=== PATIENT | female | born 1945 | race Caucasian/White ===

== ENCOUNTER → 2021-12-10 08:45 | Outpatient (BNVA) | payer MEDICARE, OTHER, SELFPAY | PROVIDERS: PCP Nurse Practitioner Family; Visit Provider Psychiatry & Neurology Psychiatry | DX: F31.31 Bipolar disorder, current episode depressed, mild (principal); I12.9 Hypertensive chronic kidney disease with stage 1 through stage 4 chronic kidney disease, or unspecified chronic kidney disease; N18.30 Chronic kidney disease, stage 3 unspecified | CPT/HCPCS: 90833; 99212 ==

== ENCOUNTER → 2022-02-10 11:31 | Outpatient (BNVA) | payer MEDICARE, OTHER, SELFPAY | PROVIDERS: PCP Nurse Practitioner Family; Visit Provider Psychiatry & Neurology Psychiatry | DX: F31.31 Bipolar disorder, current episode depressed, mild (principal); I12.9 Hypertensive chronic kidney disease with stage 1 through stage 4 chronic kidney disease, or unspecified chronic kidney disease; N18.30 Chronic kidney disease, stage 3 unspecified; Z79.899 Other long term (current) drug therapy | CPT/HCPCS: 90833; 99212 ==

== ENCOUNTER → 2022-05-29 10:59 | Outpatient (BNVA) | payer MEDICARE, OTHER, SELFPAY | PROVIDERS: PCP Nurse Practitioner Family; Visit Provider Psychiatry & Neurology Psychiatry | DX: F31.31 Bipolar disorder, current episode depressed, mild (principal); I12.9 Hypertensive chronic kidney disease with stage 1 through stage 4 chronic kidney disease, or unspecified chronic kidney disease; N18.30 Chronic kidney disease, stage 3 unspecified | CPT/HCPCS: 90833; 99212 ==

== ENCOUNTER → 2022-07-29 10:53 | Outpatient (BNVA) | payer MEDICARE, OTHER, SELFPAY | PROVIDERS: PCP Nurse Practitioner Family; Visit Provider Psychiatry & Neurology Psychiatry | DX: F31.31 Bipolar disorder, current episode depressed, mild (principal); N18.30 Chronic kidney disease, stage 3 unspecified; I10 Essential (primary) hypertension | CPT/HCPCS: 90833; 99212 ==

== ENCOUNTER 2022-10-20 12:46 | Outpatient (AMB) | payer MEDICARE, OTHER, SELFPAY ==
--- NOTE | 2022-12-10 15:13 | A.OFFPSYCH_ITS ---
Intake Intake Visit Reasons: Depression Allergies No Known Allergies [No Known Allergies*] Allergy (Unverified 11/24/19 19:15) Medication List - Last Reconciled 12/10/22 by Kevin Muniz MD amlodipine 10 mg PO DAILY carbamazepine 200 mg (2 x 100 mg) PO BID 90 days furosemide 20 mg PO DAILY gabapentin 100 mg PO TID levothyroxine (Synthroid) 50 mcg PO DAILY lorazepam 1 mg PO BEDTIME losartan 50 mg PO DAILY lurasidone (Latuda) 40 mg PO DAILY 30 days prazosin mg PO sumatriptan succinate mg PO HPI- Psychiatric Chief Complaint: Depression HPI Narrative: Patient seen in psychiatric follow-up. Patient dealing with and illness in her family which can be overwhelming she is quite close with her brothers. Does feel somewhat overly his mother at times by her daughter. Mood generally stable some periods of mild dysphoria appropriate to what is happening. Patient is in latter stages of renal disease she is potentially facing the need for dialysis at some point she continues to swim and generally be active She does use marijuana at times for sleep denies paranoia lethargy or other reaction to this we have discussed that there is no evidence base material to guide this Past Psychiatric History: Past history of hospitalizations serious manic episodes in the past Mental Status Exam Mental Status Exam Patient Appearance: Appropriate Level of Consciousness: Awake, Appropriate and Restless Patient Behavior: Appropriate and Cooperative Mood Description: Appropriate, Constricted, Anxious and Apprehensive Affect Description: Appropriate, Constricted and Depressed (In relationship to illness) Patient Cognition Impaired: No Ability to Follow Directions: Good Speech Pattern: Clear and Appropriate Memory Description: Intact Hallucinations: None Delusions: Not Present Thought Process: Intact Thought Content: positive for Intact, negative for Flight of Ideas, positive for Slowed Thinking, negative for Suicidal Ideation or negative for Homicidal Ideation Depressive Symptoms: Increased Anxiety and Increased Fatigue Judgement: Good Judgement and Insight: aims no oral facial dyskinesia patient does seem more preoccupied about her kidney related it issues and what it may mean Assessment and Plan Assessment & Plan (1) CKD (chronic kidney disease) stage 3, GFR 30-59 ml/min: Status: Acute Code(s): N18.30 - Chronic kidney disease, stage 3 unspecified (2) Bipolar 1 disorder, depressed, mild: Status: Acute Code(s): F31.31 - Bipolar disorder, current episode depressed, mild (3) Essential (primary) hypertension: Status: Acute Code(s): I10 - Essential (primary) hypertension Plan Check Tegretol level comprehensive metabolic panel hemoglobin A1c patient on Latuda no noted confusion lethargy consider decrease Tegretol has not had a manic episode or psychotic episode extended period of time no evidence of tardive dyskinesia Orders: Orders Comprehensive [place]. Panel Fast 10/20/22 N18.30 - Chronic kidney disease, stage 3 unspecified, F31.31 - Bipolar disorder, current episode depressed, mild, I10 - Essential (primary) hypertension Hemoglobin A1c 10/20/22 N18.30 - Chronic kidney disease, stage 3 unspecified, F31.31 - Bipolar disorder, current episode depressed, mild, I10 - Essential (primary) hypertension Carbamazepine Tegretol 10/20/22 N18.30 - Chronic kidney disease, stage 3 unspecified, F31.31 - Bipolar disorder, current episode depressed, mild, I10 - Essential (primary) hypertension Counseling and coordination of Care Details-Self Mgmt counseling: Issues related to chronic psychiatric illness issues related to illness in the family and life cycle issues and had a maintain Mood equanimity also in the face of chronic pain Medication management counseling: Effectiveness and Side effects Diagnosis and Prognosis Counseling: Adequacy of current interventions Details: I spent [38] minutes reviewing the record, seeing the patient and documenting in the medical record. Counseling provided to the patient/caregiver as outlined below. Addressed patient/caregiver concerns regarding current medication regime including effective adherence. Addressed patient/caregiver concerns regarding diagnosis and prognosis including accuracy of diagnosis, prognosis over time, impact of diagnosis. Addressed patient/caregiver concerns regarding impact of recent stressors. 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
== END 2022-10-20 13:28 | disposition home or self-care (01) ==
LOC: HO.HOP 12:46
PROVIDERS: PCP Nurse Practitioner Family; Visit Provider Psychiatry & Neurology Psychiatry
DX: N18.30 Chronic kidney disease, stage 3 unspecified (principal); F31.31 Bipolar disorder, current episode depressed, mild; I10 Essential (primary) hypertension
CPT/HCPCS: 90833; 99213

== ENCOUNTER → 2022-10-20 12:46 | Outpatient (BNVA) | payer MEDICARE, OTHER, SELFPAY | PROVIDERS: PCP Nurse Practitioner Family; Visit Provider Psychiatry & Neurology Psychiatry | DX: F31.31 Bipolar disorder, current episode depressed, mild (principal); I12.9 Hypertensive chronic kidney disease with stage 1 through stage 4 chronic kidney disease, or unspecified chronic kidney disease; N18.30 Chronic kidney disease, stage 3 unspecified | CPT/HCPCS: 90833; 99212 ==

== ENCOUNTER 2022-12-04 11:56 | Outpatient (AMB) | payer MEDICARE, OTHER, SELFPAY ==
--- NOTE | 2022-12-12 13:44 | MHC.OFFVISPS ---
Intake Intake Visit Reasons: depression Allergies No Known Allergies [No Known Allergies*] Allergy (Unverified 11/24/19 19:15) HPI- Psychiatric Chief Complaint: depression HPI Narrative: The patient is seen in psychiatric follow-up. The patient has been somewhat appropriately depressed and grieving after that of her brother from cancer the patient has no manic symptoms. Not depressed an ongoing way can get somewhat discouraged regarding her physical health at times. She does have chronic kidney disease and may eventually be a candidate for dialysis and this does way on her. She has had a number of losses over the past couple of years. Her PHQ-9 is 5 there is some increased irritability the patient continues on Latuda and Tegretol no ana noted S the patient is dealing with chronic pain question some form of spinal nerve involvement but has not had MRI or workup for this. She has had physical therapy. Past Psychiatric History: Past history of hospitalizations serious manic episodes in the past Mental Status Exam Mental Status Exam Patient Appearance: Appropriate Level of Consciousness: Awake, Appropriate and Restless Patient Behavior: Appropriate and Cooperative Mood Description: Appropriate, Constricted, Anxious and Apprehensive Affect Description: Appropriate and Constricted Patient Cognition Impaired: No Ability to Follow Directions: Good Speech Pattern: Clear and Appropriate Memory Description: Intact Hallucinations: None Delusions: Not Present Thought Process: Intact Thought Content: positive for Intact, negative for Flight of Ideas, positive for Slowed Thinking, negative for Suicidal Ideation or negative for Homicidal Ideation Depressive Symptoms: Increased Anxiety and Increased Fatigue Judgement: Good Judgement and Insight: aims no oral facial dyskinesia patient does seem more preoccupied about her kidney related it issues and what it may mean ongoing Assessment and Plan Assessment & Plan (1) CKD (chronic kidney disease) stage 3, GFR 30-59 ml/min: Status: Acute Code(s): N18.30 - Chronic kidney disease, stage 3 unspecified (2) Bipolar 1 disorder, depressed, mild: Status: Acute Code(s): F31.31 - Bipolar disorder, current episode depressed, mild Plan Continue Latuda and Tegretol check recent labs will trying get last nephrology noted. The patient will be seeing her PCP P would clearly be benefit from or medical workup is having appears to be intermittent radiculopathy I also discussed possible referral to pain management patient will be working through her primary care Counseling and coordination of Care Pt. Self Management counseling: Greif counseling Details-Self Mgmt counseling: Patient continues to swim and stays physically gauge. Is support regarding multiple recent losses and appropriate grieving Diagnosis and Prognosis Counseling: Impact of diagnosis on life functions and Adequacy of current interventions Details: I spent [38] minutes reviewing the record, seeing the patient and documenting in the medical record. Counseling provided to the patient/caregiver as outlined below. Addressed patient/caregiver concerns regarding current medication regime including effective adherence. Addressed patient/caregiver concerns regarding diagnosis and prognosis including accuracy of diagnosis, prognosis over time, impact of diagnosis. Addressed patient/caregiver concerns regarding impact of recent stressors. 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
== END 2022-12-04 13:53 | disposition home or self-care (01) ==
LOC: HO.HOP 11:56
PROVIDERS: PCP Nurse Practitioner Family; Visit Provider Psychiatry & Neurology Psychiatry
DX: F31.31 Bipolar disorder, current episode depressed, mild (principal); N18.30 Chronic kidney disease, stage 3 unspecified
CPT/HCPCS: 90833; 99213

== ENCOUNTER → 2022-12-04 11:56 | Outpatient (BNVA) | payer MEDICARE, OTHER, SELFPAY | PROVIDERS: PCP Nurse Practitioner Family; Visit Provider Psychiatry & Neurology Psychiatry | DX: F31.81 Bipolar II disorder (principal); N18.30 Chronic kidney disease, stage 3 unspecified; Z79.899 Other long term (current) drug therapy | CPT/HCPCS: 90833; 99212 ==

== ENCOUNTER 2023-01-13 11:09 | Outpatient (AMB) | payer MEDICARE, OTHER, SELFPAY ==
--- NOTE | 2023-01-13 11:24 | A.OFFPSYCH_ITS ---
Intake Intake Visit Reasons: depression Allergies No Known Allergies [No Known Allergies*] Allergy (Unverified 11/24/19 19:15) HPI- Psychiatric Chief Complaint: depression HPI Narrative: Pt is 77 yo female hx of bipolar dx feels stable went to [facility] [place] recently [place] father was commander of [employer] no change in medical status has cont to swim intermittantly does have radicular pain has pcp appt 01/20/23 daughter needing hip replacement Past Psychiatric History: Past history of hospitalizations serious manic episodes in the past Mental Status Exam Mental Status Exam Patient Appearance: Appropriate Level of Consciousness: Awake and Appropriate Patient Behavior: Appropriate and Cooperative Mood Description: Appropriate and Constricted Affect Description: Appropriate and Constricted Patient Cognition Impaired: No Ability to Follow Directions: Good Speech Pattern: Clear and Appropriate Memory Description: Intact Hallucinations: None Delusions: Not Present Thought Process: Intact Thought Content: positive for Intact, negative for Flight of Ideas, positive for Slowed Thinking, negative for Suicidal Ideation or negative for Homicidal Ideation Depressive Symptoms: Increased Anxiety and Increased Fatigue Judgement: Good Judgement and Insight: aims no oral facial dyskinesia some frustration with medical providers at times thinks about loss of brothers Assessment and Plan Assessment & Plan (1) CKD (chronic kidney disease) stage 3, GFR 30-59 ml/min: Status: Acute Code(s): N18.30 - Chronic kidney disease, stage 3 unspecified (2) Bipolar 1 disorder, depressed, mild: Status: Acute Code(s): F31.31 - Bipolar disorder, current episode depressed, mild (3) Essential (primary) hypertension: Status: Acute Code(s): I10 - Essential (primary) hypertension Plan pt generally stable some c/o pain needs spinal w/u still has active sibs teg 200 bid latuda 40 mg see labs Counseling and coordination of Care Pt. Self Management counseling: Behavior activation Medication management counseling: Effectiveness and Side effects Diagnosis and Prognosis Counseling: Adequacy of current interventions Details-Diagnosis/Prognosis counseling: full range of emotion cont social activities Details: I spent [38] minutes reviewing the record, seeing the patient and documenting in the medical record. Counseling provided to the patient/caregiver as outlined below. Addressed patient/caregiver concerns regarding current medication regime including effective adherence. Addressed patient/caregiver concerns regarding diagnosis and prognosis including accuracy of diagnosis, prognosis over time, impact of diagnosis. Addressed patient/caregiver concerns regarding impact of recent stressors. 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
== END 2023-01-13 12:02 | disposition home or self-care (01) ==
LOC: HO.HOP 11:09
PROVIDERS: Visit Provider Psychiatry & Neurology Psychiatry
DX: F31.31 Bipolar disorder, current episode depressed, mild (principal); N18.30 Chronic kidney disease, stage 3 unspecified; I10 Essential (primary) hypertension
CPT/HCPCS: 90833; 99213

== ENCOUNTER → 2023-01-13 11:09 | Outpatient (BNVA) | payer MEDICARE, OTHER, SELFPAY | PROVIDERS: Visit Provider Psychiatry & Neurology Psychiatry | DX: I12.9 Hypertensive chronic kidney disease with stage 1 through stage 4 chronic kidney disease, or unspecified chronic kidney disease (principal); N18.30 Chronic kidney disease, stage 3 unspecified; F31.31 Bipolar disorder, current episode depressed, mild | CPT/HCPCS: 90833; 99212 ==

== ENCOUNTER 2023-02-24 11:34 | Outpatient (AMB) | payer MEDICARE, OTHER, SELFPAY ==
--- NOTE | 2023-02-24 11:28 | A.OFFPSYCH_ITS ---
Intake Intake Visit Reasons: Depression Allergies No Known Allergies [No Known Allergies*] Allergy (Unverified 11/24/19 19:15) HPI- Psychiatric Chief Complaint: Depression HPI Narrative: Patient dealing with deaths of multiple fam members some grief. No manic symptoms some periods of dysphoria but generally doing okay. No significant change in renal status. Patient continues on Latuda and Tegretol. No complaints of side effects smokes a small amount of marijuana reportedly at bedtime that reportedly has been helpful no significant instability or problems Past Psychiatric History: Past history of hospitalizations serious manic episodes in the past Mental Status Exam Mental Status Exam Patient Appearance: Appropriate Level of Consciousness: Awake and Appropriate Patient Behavior: Appropriate and Cooperative Mood Description: Appropriate and Constricted Affect Description: Appropriate and Constricted Patient Cognition Impaired: No Ability to Follow Directions: Good Speech Pattern: Clear and Appropriate Memory Description: Intact Hallucinations: None Delusions: Not Present Thought Process: Intact Thought Content: positive for Intact, negative for Flight of Ideas, positive for Slowed Thinking, negative for Suicidal Ideation or negative for Homicidal Ideation Depressive Symptoms: Increased Anxiety and Increased Fatigue Judgement: Good Judgement and Insight: aims no oral facial dyskinesia some frustration with medical providers at times thinks about loss of brothers Assessment and Plan Assessment & Plan (1) Bipolar 1 disorder, depressed, mild: Status: Acute Code(s): F31.31 - Bipolar disorder, current episode depressed, mild (2) CKD (chronic kidney disease) stage 3, GFR 30-59 ml/min: Status: Acute Code(s): N18.30 - Chronic kidney disease, stage 3 unspecified Plan Because of lethargy and fatigue will trying decrease carbamazepine to 300 mg if any evidence of cycling increase immediately Continue Latuda Medications: Changed From carbamazepine 200 mg (2 x 100 mg) PO BID 90 days 360 tabs 1RF To carbamazepine 1 tab in the am 2 tabs bedtime 100 - 200 mg (1 - 2 x 100 mg) PO DIRECTED 180 tabs 1RF 90 days Counseling and coordination of Care Details-Self Mgmt counseling: Discussed issues related to recent family issues insert financial issue Details-Med Mgmt counseling: Patient with decreased renal function somewhat lethargic decrease Tegretol to 300 mg daily Diagnosis and Prognosis Counseling: Accuracy of diagnosis and Adequacy of current interventions Details: I spent [37] minutes reviewing the record, seeing the patient and documenting in the medical record. Counseling provided to the patient/caregiver as outlined below. Addressed p atient/caregiver concerns regarding current medication regime including effective adherence. Addressed patient/caregiver concerns regarding diagnosis and prognosis including accuracy of diagnosis, prognosis over time, impact of diagnosis. Addressed patient/caregiver concerns regarding impact of recent stressors. 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
== END 2023-02-24 11:46 | disposition home or self-care (01) ==
LOC: HO.HOP 11:34
PROVIDERS: Visit Provider Psychiatry & Neurology Psychiatry
DX: F31.31 Bipolar disorder, current episode depressed, mild (principal); N18.30 Chronic kidney disease, stage 3 unspecified
CPT/HCPCS: 90833; 99213

== ENCOUNTER → 2023-02-24 11:34 | Outpatient (BNVA) | payer MEDICARE, OTHER, SELFPAY | PROVIDERS: Visit Provider Psychiatry & Neurology Psychiatry | DX: F31.31 Bipolar disorder, current episode depressed, mild (principal); N18.30 Chronic kidney disease, stage 3 unspecified | CPT/HCPCS: 90833; 99212 ==

== ENCOUNTER 2023-04-03 16:05 | Outpatient (AMB) | payer MEDICARE, OTHER, SELFPAY ==
--- NOTE | 2023-04-03 11:18 | A.OFFPSYCH_ITS ---
Intake Intake Visit Reasons: Depression Allergies No Known Allergies [No Known Allergies*] Allergy (Unverified 11/24/19 19:15) HPI- Psychiatric Chief Complaint: Depression HPI Narrative: Patient seen in psychiatric follow-up. The patient has been more anxious and dysphoric to some degree. Her ex will be moving closer to be with their daughter. Patient is also dealing with the loss of her rack pusher who would become close electrical prospecting operator.Has also been concerned regarding back pain. Has been on latuda tegretol Past Psychiatric History: Past history of hospitalizations serious manic episodes in the past Assessment and Plan Assessment & Plan (1) Bipolar 1 disorder, depressed, mild: Status: Acute Code(s): F31.31 - Bipolar disorder, current episode depressed, mild (2) CKD (chronic kidney disease) stage 3, GFR 30-59 ml/min: Status: Acute Code(s): N18.30 - Chronic kidney disease, stage 3 unspecified Plan pt has had more racing thoughts anxiety has had a number of changes seems more labile on decresed tegretol 300 mg will inc back to 200 bid ck level consider inc 500 mg consider inc latuda ck albs Orders: Orders TSH reflex Free T4 04/03/23 N18.30 - Chronic kidney disease, stage 3 unspecified, F31.31 - Bipolar disorder, current episode depressed, mild Complete Blood Count Auto Diff 04/03/23 N18.30 - Chronic kidney disease, stage 3 unspecified, F31.31 - Bipolar disorder, current episode depressed, mild Comprehensive [place]. Panel Fast 04/03/23 N18.30 - Chronic kidney disease, stage 3 unspecified, F31.31 - Bipolar disorder, current episode depressed, mild Carbamazepine Tegretol 04/03/23 N18.30 - Chronic kidney disease, stage 3 unspecified, F31.31 - Bipolar disorder, current episode depressed, mild Counseling and coordination of Care Details-Self Mgmt counseling: pt considering moving sstressed discussed not making any major moves at this time Medication management counseling: Effectiveness and Dosing range Diagnosis and Prognosis Counseling: Problematic behaviors secondary to diagnosis and Adequacy of current interventions Details: I spent [38] minutes reviewing the record, seeing the patient and documenting in the medical record. Counseling provided to the patient/caregiver as outlined below. Addressed patient/caregiver concerns regarding current medication regime including effective adherence. Addressed patient/caregiver concerns regarding diagnosis and prognosis including accuracy of diagnosis, prognosis over time, impact of diagnosis. Addressed patient/caregiver concerns regarding impact of recent stressors. 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
== END 2023-04-03 16:09 | disposition home or self-care (01) ==
LOC: HO.HOP 16:06
PROVIDERS: Visit Provider Psychiatry & Neurology Psychiatry
DX: F31.31 Bipolar disorder, current episode depressed, mild (principal); N18.30 Chronic kidney disease, stage 3 unspecified
CPT/HCPCS: 90833; 99213

== ENCOUNTER → 2023-04-03 16:05 | Outpatient (BNVA) | payer MEDICARE, OTHER, SELFPAY | PROVIDERS: Visit Provider Psychiatry & Neurology Psychiatry | DX: F31.31 Bipolar disorder, current episode depressed, mild (principal); N18.30 Chronic kidney disease, stage 3 unspecified | CPT/HCPCS: 99212 ==

== ENCOUNTER 2023-05-14 12:27 | Outpatient (AMB) | payer MEDICARE, OTHER, SELFPAY ==
--- NOTE | 2023-05-14 12:55 | MHC.OFFVISPS ---
Intake Intake Visit Reasons: Depression Allergies No Known Allergies [No Known Allergies*] Allergy (Unverified 11/24/19 19:15) HPI- Psychiatric Chief Complaint: Depression HPI Narrative: Patient seen psychiatric follow-up has been feeling more stable since Tegretol increased back to 400 mg a day was concern regarding sedation but patient clearly feeling much more stable . There have been a number of changes her daughter seems to be backing off somewhat the patient's ex- has moved into the area her daughter is now sharing time between her mother and biological father. 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 She does have in the back of her mind that at some point she may need dialysis. She is looking to visit her [id number] who has having a very difficult time after patient's brother. Patient also has chronic back pain has finally been referred to pain management. No noted current manic symptoms not overly despairing or depressed according to the patient. She did also recently lose her events solutions consultant who had been quite helpful Past Psychiatric History: Past history of hospitalizations serious manic episodes in the past Mental Status Exam Mental Status Exam Patient Appearance: Appropriate Level of Consciousness: Awake and Appropriate Patient Behavior: Appropriate and Cooperative Mood Description: Appropriate and Constricted Affect Description: Appropriate and Constricted Patient Cognition Impaired: No Ability to Follow Directions: Good Speech Pattern: Clear and Appropriate Memory Description: Intact Hallucinations: None Delusions: Not Present Thought Process: Intact Thought Content: positive for Intact, negative for Flight of Ideas, positive for Slowed Thinking, negative for Suicidal Ideation or negative for Homicidal Ideation Depressive Symptoms: Increased Anxiety and Increased Fatigue Judgement: Good Judgement and Insight: aims no oral facial dyskinesia some frustration with medical providers at times thinks about loss of brothers Assessment and Plan Assessment & Plan (1) Bipolar 1 disorder, depressed, mild: Status: Acute Code(s): F31.31 - Bipolar disorder, current episode depressed, mild (2) CKD (chronic kidney disease) stage 3, GFR 30-59 ml/min: Status: Acute Code(s): N18.30 - Chronic kidney disease, stage 3 unspecified (3) Essential (primary) hypertension: Status: Acute Code(s): I10 - Essential (primary) hypertension Plan Pt generally doing better on tegretol 200 bid Latuda 40 mg has not felt the anxiety and dysphoria that she had been experiencing continue to monitor labs on higher dose Tegretol monitor for confusion . Medications: Changed From carbamazepine 1 tab in the am 2 tabs bedtime 100 - 200 mg (1 - 2 x 100 mg) PO DIRECTED 90 days 180 tabs 1RF To carbamazepine 1 tab in the am 2 tabs bedtime 200 mg (2 x 100 mg) PO BID 360 tabs 1RF 90 days From carbamazepine 1 tab in the am 2 tabs bedtime 200 mg (2 x 100 mg) PO BID 90 days 360 tabs 1RF To carbamazepine 200 mg (2 x 100 mg) PO BID 360 tabs 1RF 90 days Refilled lurasidone (Latuda) 40 mg PO DAILY 30 tabs 3RF 30 days Counseling and coordination of Care Details: I spent [] minutes reviewing the record, seeing the patient and documenting in the medical record. Counseling provided to the patient/caregiver as outlined below. Addressed patient/caregiver concerns regarding current medication regime including effective adherence. Addressed patient/caregiver concerns regarding diagnosis and prognosis including accuracy of diagnosis, prognosis over time, impact of diagnosis. Addressed patient/caregiver concerns regarding impact of recent stressors. 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
== END 2023-05-14 13:06 | disposition home or self-care (01) ==
LOC: HO.HOP 12:27
PROVIDERS: Visit Provider Psychiatry & Neurology Psychiatry
DX: F31.31 Bipolar disorder, current episode depressed, mild (principal); N18.30 Chronic kidney disease, stage 3 unspecified; I10 Essential (primary) hypertension
CPT/HCPCS: 90833; 99213

== ENCOUNTER → 2023-05-14 12:27 | Outpatient (BNVA) | payer MEDICARE, OTHER, SELFPAY | PROVIDERS: Visit Provider Psychiatry & Neurology Psychiatry | DX: F31.31 Bipolar disorder, current episode depressed, mild (principal); I12.9 Hypertensive chronic kidney disease with stage 1 through stage 4 chronic kidney disease, or unspecified chronic kidney disease; N18.30 Chronic kidney disease, stage 3 unspecified | CPT/HCPCS: 99212 ==

== ENCOUNTER 2023-07-17 11:55 | Outpatient (AMB) | payer MEDICARE, OTHER, SELFPAY ==
--- NOTE | 2023-07-17 12:22 | A.OFFPSYCH_ITS ---
Intake Intake Visit Reasons: depression Allergies No Known Allergies [No Known Allergies*] Allergy (Unverified 11/24/19 19:15) Medication List - Last Reconciled 07/17/23 by Kevin Muniz MD amlodipine 10 mg PO DAILY carbamazepine 200 mg (2 x 100 mg) PO BID 90 days furosemide 20 mg PO DAILY gabapentin 100 mg PO TID levothyroxine (Synthroid) 50 mcg PO DAILY lorazepam 1 mg PO BEDTIME losartan 50 mg PO DAILY lurasidone (Latuda) 40 mg PO DAILY 30 days prazosin mg PO sumatriptan succinate mg PO HPI- Psychiatric Chief Complaint: depression HPI Narrative: Pt seen in f/u mood has been ok some difficulty with sleep has chronic pain in the hips may need surgery but has renal disease no significant manic or depressive sx some melancholy at times Past Psychiatric History: Past history of hospitalizations serious manic episodes in the past Mental Status Exam Mental Status Exam Patient Appearance: Appropriate Level of Consciousness: Awake and Appropriate Patient Behavior: Appropriate and Cooperative Mood Description: Appropriate and Constricted Affect Description: Appropriate and Constricted Patient Cognition Impaired: No Ability to Follow Directions: Good Speech Pattern: Clear and Appropriate Memory Description: Intact Hallucinations: None Delusions: Not Present Thought Process: Intact Thought Content: positive for Intact, negative for Flight of Ideas, positive for Slowed Thinking, negative for Suicidal Ideation or negative for Homicidal Ideation Depressive Symptoms: Increased Anxiety and Increased Fatigue Judgement: Good Judgement and Insight: aims no oral facial dyskinesia some frustration with medical providers at times thinks about loss of brothers Assessment and Plan Assessment & Plan (1) Bipolar 1 disorder, depressed, mild: Status: Acute Code(s): F31.31 - Bipolar disorder, current episode depressed, mild (2) Essential (primary) hypertension: Status: Acute Code(s): I10 - Essential (primary) hypertension (3) CKD (chronic kidney disease) stage 3, GFR 30-59 ml/min: Status: Acute Code(s): N18.30 - Chronic kidney disease, stage 3 unspecified Plan cont latuda tegretol no noted side effects no eveidence of TD on exam Medications: Changed From lorazepam 1 mg PO BEDTIME 30 tabs 2RF To lorazepam 0.5 - 1 mg (0.5 - 1 x 1 mg) PO BEDTIME PRN 30 tabs 2RF insomnia 30 days From lurasidone 40 mg PO DAILY 30 days 30 tabs 3RF To lurasidone (Latuda) 40 mg PO DAILY 90 tabs 1RF 90 days Counseling and coordination of Care Details: I spent [] minutes reviewing the record, seeing the patient and documenting in the medical record. Counseling provided to the patient/caregiver as outlined below. Addressed patient/caregiver concerns regarding current medication regime including effective adherence. Addressed patient/caregiver concerns regarding diagnosis and prognosis including accuracy of diagnosis, prognosis over time, impact of diagnosis. Addressed patient/caregiver concerns regarding impact of recent stressors. 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
== END 2023-07-17 12:49 | disposition home or self-care (01) ==
LOC: HO.HOP 11:55
PROVIDERS: Visit Provider Psychiatry & Neurology Psychiatry
DX: F31.31 Bipolar disorder, current episode depressed, mild (principal); I10 Essential (primary) hypertension; N18.30 Chronic kidney disease, stage 3 unspecified
CPT/HCPCS: 99214

== ENCOUNTER → 2023-07-17 11:55 | Outpatient (BNVA) | payer MEDICARE, OTHER, SELFPAY | PROVIDERS: Visit Provider Psychiatry & Neurology Psychiatry | DX: F31.31 Bipolar disorder, current episode depressed, mild (principal); I12.9 Hypertensive chronic kidney disease with stage 1 through stage 4 chronic kidney disease, or unspecified chronic kidney disease; N18.30 Chronic kidney disease, stage 3 unspecified; Z79.899 Other long term (current) drug therapy | CPT/HCPCS: 99212 ==

== ENCOUNTER 2023-10-06 12:03 | Outpatient (AMB) | payer MEDICARE, OTHER, SELFPAY ==
--- NOTE | 2023-10-06 12:18 | MHC.OFFVISPS ---
Intake Intake Visit Reasons: depression Allergies No Known Allergies [No Known Allergies*] Allergy (Unverified 11/24/19 19:15) Medication List - Last Reconciled 10/06/23 by Kevin Muniz MD amlodipine 10 mg PO DAILY carbamazepine 200 mg (2 x 100 mg) PO BID 90 days furosemide 20 mg PO DAILY gabapentin 100 mg PO TID levothyroxine (Synthroid) 50 mcg PO DAILY lorazepam 0.5 - 1 mg (0.5 - 1 x 1 mg) PO BEDTIME PRN 30 days losartan 50 mg PO DAILY lurasidone (Latuda) 40 mg PO DAILY 90 days prazosin mg PO sumatriptan succinate mg PO HPI- Psychiatric Chief Complaint: depression HPI Narrative: Patient seen psychiatric follow-up. Patient states she has generally been doing okay there has been some periods of increase despair regarding possibility of needing dialysis initially patient was quite resistant states she is more open at this time denies feeling overly depressed despairing states her mood has been stable. Has been getting along with her ex- Past Psychiatric History: Past history of hospitalizations serious manic episodes in the past Mental Status Exam Mental Status Exam Narrative: PHQ-9 5 Patient Appearance: Appropriate Level of Consciousness: Awake and Appropriate Patient Behavior: Appropriate and Cooperative Mood Description: Appropriate and Constricted Affect Description: Appropriate and Constricted Patient Cognition Impaired: No Ability to Follow Directions: Good Speech Pattern: Clear and Appropriate Memory Description: Intact Hallucinations: None Delusions: Not Present Thought Process: Intact Thought Content: positive for Intact, negative for Flight of Ideas, positive for Slowed Thinking, negative for Suicidal Ideation or negative for Homicidal Ideation Depressive Symptoms: Increased Anxiety, Increased Fatigue and Thoughts of /Suicide Judgement: Fair Judgement and Insight: thinks about loss of brothers dealing with issues related to chronic pain and kidney issues at times can get despairing states generally future oriented able to engage and enjoy things Assessment and Plan Assessment & Plan (1) Bipolar 1 disorder, depressed, mild: Status: Acute Code(s): F31.31 - Bipolar disorder, current episode depressed, mild (2) CKD (chronic kidney disease) stage 3, GFR 30-59 ml/min: Status: Acute Code(s): N18.30 - Chronic kidney disease, stage 3 unspecified (3) Essential (primary) hypertension: Status: Acute Code(s): I10 - Essential (primary) hypertension Plan Pt has been inc stable has been doin g well with her ex does have chronic pain has been taking tramadol 25 bid feeling ok with that Medications: Changed From lorazepam 0.5 - 1 mg (0.5 - 1 x 1 mg) PO BEDTIME 30 days PRN 30 tabs 2RF insomnia To lorazepam do not take at same time as tramadol 0.5 - 1 mg (0.5 - 1 x 1 mg) PO BEDTIME PRN 30 tabs 2RF insomnia 30 days Refilled carbamazepine 200 mg (2 x 100 mg) PO BID 360 tabs 1RF 90 days lurasidone (Latuda) 40 mg PO DAILY 90 tabs 1RF 90 days Counseling and coordination of Care Pt. Self Management counseling: Breathing, Med illness tx adherence and Behavior activation Details-Self Mgmt counseling: Issues related to medical illness chronic pain transplant versus dialysis Diagnosis and Prognosis Counseling: Impact of diagnosis on life functions and Adequacy of current interventions Details-Diagnosis/Prognosis counseling: Patient will need to be dealing over time with her change in kidney function she states recently she was told it essentially is unchanged but may need to make long-term decisions over time dialysis center eventually perhaps. She continues on Tegretol Latuda has a car range of affect with some periods of depression and despair denies any active self-harming thoughts is still social and engaged. Unclear if counseling perhaps is available specifically regarding transplant issues through nephrology Details: I spent [39] minutes reviewing the record, seeing the patient and documenting in the medical record. Counseling provided to the patient/caregiver as outlined below. Addressed patient/caregiver concerns regarding current medication regime including effective adherence. Addressed patient/caregiver concerns regarding diagnosis and prognosis including accuracy of diagnosis, prognosis over time, impact of diagnosis. Addressed patient/caregiver concerns regarding impact of recent stressors. 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
== END 2023-10-06 12:38 | disposition home or self-care (01) ==
LOC: HO.HOP 12:03
PROVIDERS: Visit Provider Psychiatry & Neurology Psychiatry
DX: F31.31 Bipolar disorder, current episode depressed, mild (principal); N18.30 Chronic kidney disease, stage 3 unspecified; I10 Essential (primary) hypertension
CPT/HCPCS: 90833; 99213

== ENCOUNTER → 2023-10-06 12:03 | Outpatient (BNVA) | payer MEDICARE, OTHER, SELFPAY | PROVIDERS: Visit Provider Psychiatry & Neurology Psychiatry | DX: I12.9 Hypertensive chronic kidney disease with stage 1 through stage 4 chronic kidney disease, or unspecified chronic kidney disease (principal); N18.30 Chronic kidney disease, stage 3 unspecified; F31.31 Bipolar disorder, current episode depressed, mild | CPT/HCPCS: 99212 ==

== ENCOUNTER 2024-03-07 11:12 | Outpatient (AMB) | payer MEDICARE, OTHER, SELFPAY ==
--- NOTE | 2024-03-07 12:21 | MHC.OFFVISPS ---
Intake Intake Visit Reasons: depression Allergies No Known Allergies [No Known Allergies*] Allergy (Unverified 11/24/19 19:15) Medication List - Last Reconciled 03/07/24 by Kevin Muniz MD amlodipine 10 mg PO DAILY carbamazepine 200 mg (2 x 100 mg) PO BID 90 days furosemide 20 mg PO DAILY gabapentin 100 mg PO TID levothyroxine (Synthroid) 50 mcg PO DAILY lorazepam 0.5 - 1 mg (0.5 - 1 x 1 mg) PO BEDTIME PRN 30 days losartan 50 mg PO DAILY lurasidone (Latuda) 40 mg PO DAILY 90 days prazosin mg PO sumatriptan succinate mg PO tramadol 50 mg PO BID PRN HPI- Psychiatric Chief Complaint: depression HPI Narrative: Pt seen in psych f/u mood has been ok with some dep sx at times related to her limitations and not wanting to have dialysis. Has been on tegretol latuda has some conflict at times with daughter who seems overcontrolling at times. Past Psychiatric History: Past history of hospitalizations serious manic episodes in the past Mental Status Exam Mental Status Exam Narrative: PHQ-9 5 Patient Appearance: Appropriate Level of Consciousness: Awake and Appropriate Patient Behavior: Appropriate and Cooperative Mood Description: Appropriate and Constricted Affect Description: Appropriate and Constricted Patient Cognition Impaired: No Ability to Follow Directions: Good Speech Pattern: Clear and Appropriate Memory Description: Intact Hallucinations: None Delusions: Not Present Thought Process: Intact Thought Content: positive for Intact, negative for Flight of Ideas, positive for Slowed Thinking, negative for Suicidal Ideation or negative for Homicidal Ideation Depressive Symptoms: Increased Anxiety, Increased Fatigue and Thoughts of /Suicide Judgement: Fair Judgement and Insight: thinks about loss of brothers dealing with issues related to chronic pain and kidney issues at times can get despairing states generally future oriented able to engage and enjoy things Assessment and Plan Assessment & Plan (1) Bipolar 1 disorder, depressed, mild: Status: Acute Code(s): F31.31 - Bipolar disorder, current episode depressed, mild (2) Essential (primary) hypertension: Status: Acute Code(s): I10 - Essential (primary) hypertension (3) CKD (chronic kidney disease) stage 3, GFR 30-59 ml/min: Status: Acute Code(s): N18.30 - Chronic kidney disease, stage 3 unspecified Plan ck tegretol level met profile given pts ckd. Tried to discuss with pt options re dialysis pt does not wish to have port placed discussed risks of not having port placed and needing to make decisions when things are more acute latuda more liver metab consider dec to 20 mg Orders: Orders Carbamazepine Tegretol 03/07/24 F31.31 - Bipolar disorder, current episode depressed, mild, N18.30 - Chronic kidney disease, stage 3 unspecified Comprehensive Met. Panel 03/07/24 F31.31 - Bipolar disorder, current episode depressed, mild, N18.30 - Chronic kidney disease, stage 3 unspecified TSH reflex Free T4 03/07/24 F31.31 - Bipolar disorder, current episode depressed, mild, N18.30 - Chronic kidney disease, stage 3 unspecified Vitamin B12 and Folate 03/07/24 F31.31 - Bipolar disorder, current episode depressed, mild, N18.30 - Chronic kidney disease, stage 3 unspecified Counseling and coordination of Care Pt. Self Management counseling: Med illness tx adherence Medication management counseling: Effectiveness and Side effects Details: I spent [38] minutes reviewing the record, seeing the patient and documenting in the medical record. Counseling provided to the patient/caregiver as outlined below. Addressed patient/caregiver concerns regarding current medication regime including effective adherence. Addressed patient/caregiver concerns regarding diagnosis and prognosis including accuracy of diagnosis, prognosis over time, impact of diagnosis. Addressed patient/caregiver concerns regarding impact of recent stressors. 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
== END 2024-03-07 15:09 | disposition home or self-care (01) ==
LOC: HO.HOP 11:12
PROVIDERS: Visit Provider Psychiatry & Neurology Psychiatry
DX: F31.31 Bipolar disorder, current episode depressed, mild (principal); I10 Essential (primary) hypertension; N18.30 Chronic kidney disease, stage 3 unspecified
CPT/HCPCS: 90833; 99213

== ENCOUNTER → 2024-03-07 11:12 | Outpatient (BNVA) | payer MEDICARE, OTHER, SELFPAY | PROVIDERS: Visit Provider Psychiatry & Neurology Psychiatry | DX: F31.31 Bipolar disorder, current episode depressed, mild (principal); I12.9 Hypertensive chronic kidney disease with stage 1 through stage 4 chronic kidney disease, or unspecified chronic kidney disease; N18.30 Chronic kidney disease, stage 3 unspecified | CPT/HCPCS: 99212 ==

== ENCOUNTER 2024-06-10 12:27 | Outpatient (AMB) | payer MEDICARE, OTHER, SELFPAY ==
--- NOTE | 2024-06-10 12:43 | MHC.OFFVISPS ---
Intake Intake Visit Reasons: depression Allergies No Known Allergies [No Known Allergies*] Allergy (Unverified 11/24/19 19:15) Medication List - Last Reconciled 06/10/24 by Kevin Muniz MD amlodipine 10 mg PO DAILY carbamazepine 200 mg (2 x 100 mg) PO BID 90 days gabapentin 100 mg PO TID levothyroxine (Synthroid) 50 mcg PO DAILY lorazepam 0.5 - 1 mg (0.5 - 1 x 1 mg) PO BEDTIME PRN 30 days losartan 50 mg PO DAILY lurasidone (Latuda) 40 mg PO DAILY 90 days prazosin mg PO sumatriptan succinate mg PO tramadol 50 mg PO BID PRN HPI- Psychiatric Chief Complaint: depression HPI Narrative: Pt seen in f/u mood has been ok has been social feels better with hip inj no manic sx Exh seems intact getting along with ex h who moved to the area ex h has implanted defib Patient denies any manic or significant depressive cycling. The patient at present has refused consideration of dialysis. She is aware that may come to a need for an urgent response at some point. Reportedly her condition has been stable no confusion no edema. Past Psychiatric History: Past history of hospitalizations serious manic episodes in the past Mental Status Exam Mental Status Exam Patient Appearance: Appropriate Level of Consciousness: Awake and Appropriate Patient Behavior: Appropriate and Cooperative Mood Description: Calm and Appropriate Affect Description: Calm and Appropriate Patient Cognition Impaired: No Ability to Follow Directions: Good Speech Pattern: Clear and Appropriate Memory Description: Intact Hallucinations: None Delusions: Not Present Thought Process: Intact Thought Content: positive for Intact, negative for Flight of Ideas, positive for Slowed Thinking, negative for Suicidal Ideation or negative for Homicidal Ideation Depressive Symptoms: Increased Anxiety and Increased Fatigue Judgement: Fair Judgement and Insight: Patient has generally tried to keep the option of dialysis aside until she has to. States when she needs to make a decision she will make it but at this point does not want to entertain dialysis is aware her condition can deteriorate at present states her quality of life is okay especially after injection in her hip which improved her pain which improved her quality of life Assessment and Plan Assessment & Plan (1) Bipolar 1 disorder, depressed, mild: Status: Acute Code(s): F31.31 - Bipolar disorder, current episode depressed, mild (2) Essential (primary) hypertension: Status: Acute Code(s): I10 - Essential (primary) hypertension (3) CKD (chronic kidney disease) stage 3, GFR 30-59 ml/min: Status: Acute Code(s): N18.30 - Chronic kidney disease, stage 3 unspecified Plan Continue Latuda 40 mg no oral facial dyskinesia or other dyskinesia noted not overly depressed or manic continue Tegretol 200 b.i.d. try to review options regarding dialysis and be open to discussing this further when and if the patient wishes to discuss. She is aware she can change her mind at any time Medications: Refilled lurasidone (Latuda) 40 mg PO DAILY 90 tabs 1RF 90 days Counseling and coordination of Care Medication management counseling: Effectiveness and Side effects Details-Med Mgmt counseling: No evidence of tardive dyskinesia Details-Diagnosis/Prognosis counseling: Patient generally stable on current regimen no thoughts of self-harm open to some discussion regarding her chronic kidney disease and possibility of dialysis versus quality of life issue Details: I spent [42] minutes reviewing the record, seeing the patient and documenting in the medical record. Counseling provided to the patient/caregiver as outlined below. Addressed patient/caregiver concerns regarding current medication regime including effective adherence. Addressed patient/caregiver concerns regarding diagnosis and prognosis including accuracy of diagnosis, prognosis over time, impact of diagnosis. Addressed patient/caregiver concerns regarding impact of recent stressors. 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
--- OUTSIDE RECORDS SUMMARY | 2024-06-10 14:20 | XMS_ITS | Encounter Summary ---
Author Organization [facility] Address [address] [facility] [address] [place] [address] Phone Care Team Providers Care Professor Of Theater Name Role Phone Margarita Ribeiro MD Primary Care Provider [phone] Encounter Details Date Type Department Care Team (Late st Contact Info) Description 09/03/2023 Office Communication [facility] [address] [facility] [address] [place] [phone] David Goss MD [address] [facility] [address] [place] [phone] Social History Tobacco Use Types Packs/Day Years Used Date Smoking Tobacco: Never Alcohol Use Standard Drinks/Week Comments No 0 (1 standard drink = 0.6 oz pur e alcohol) Comments Unknown Sex and Gender Information Value Date Recorded Sex Assigned at Not on file Legal Sex Female 5:07 PM EST Gender Identity Not on file Sexual Orientation Not on file documented as of this encounter Miscellaneous Notes * Telephone Encounter - David Goss MD - 09/24/2023 9:16 AM EDT Pls add PT tel # to [phone] * Telephone Encounter - David Goss MD - 09/03/2023 5:35 AM EDT Refer PT to following [facility] for IV Fe and EPO injections--lmk if they will not see her and Dr Akash Trujillo ( [facility]) for vein mappng and AVF placement documented in this encounter Plan of Treatment Not on file documented as of this encounter Visit Diagnoses Not on filedocumented in this encounter Care Teams Professor Of Theater Relationship Specialty Start Date End Date Margarita Ribeiro MD [address] [place], [place] PCP - General Family Medicine 09/02/23 documented as of this encounter
--- OUTSIDE RECORDS SUMMARY | 2024-06-10 14:20 | XMS_ITS | Encounter Summary ---
Author Organization [facility] Address [address] [facility] [address] [place] [address] Phone Care Team Providers Care Bed Operator Name Role Phone Margarita Ribeiro MD Primary Care Provider [phone] Reason for Visit * Reason Comments Med Refill Encounter Details Date Type Department Care Team ([facility] st Contact Info) Description 11/24/2020 Refill [facility] [address] [facility] [address] [place] [phone] David Goss MD [address] [facility] [address] [place] [phone] Social History Tobacco Use Types Packs/Day Years [...] Telephone Encounter - David Goss MD - 11/27/2020 2:48 PM EDT Needs f/u in 5-6 weeks with me 1. tell them I sent rx but no refils 2. They must see me or have a telehealth visit with me before I can renew it again 3. when u call them be sure to make the f/u appt at the same time u inform them th rx was sent by me documented in this encounter Plan of Treatment Not on file documented as of this encounter Visit Diagnoses Not on filedocumented in this encounter Care Teams Bed Operator Relationship Specialty Start Date End Date [facility]arita Ribeiro [facility] - [facility] Family [facility] 09/02/23 documented as of this encounter
--- OUTSIDE RECORDS SUMMARY | 2024-06-10 14:20 | XMS_ITS | Clinical Summary ---
Author Organization [facility] Address [address] [place] [phone] Phone Care Team Providers Care Heeler Machine Name Role Phone Margarita Ribeiro MD Primary Care Provider [phone] Allergies No known active allergies Medications SUMAtriptan (IMITREX) 50 MG tablet Take 1 tablet by mouth 1 (one) time each day Active propranolol (INDERAL) 10 MG tablet 06/29/2020 Active prazosin (MINIPRESS) 1 MG capsule TAKE 3 CAPSULE BY MOUTH IN THE EVENING. 06/20/2020 Active omeprazole OTC (PriLOSEC OTC) 20 MG EC tablet Take 1 tablet by mouth 1 (one) time each day Active lurasidone (LATUDA) 40 MG tablet Take 1 tablet by mouth 1 (one) time each day Active losartan (COZAAR) 50 MG tablet 07/13/2020 Active LORazepam (ATIVAN) 1 MG tablet 07/04/2020 Active levothyroxine (SYNTHROID, LEVOTHROID) 50 MCG tablet Take 1 tablet by mouth 1 (one) time each day Active gabapentin (NEURONTIN) 100 MG capsule 4 pill a day 07/04/2020 Activ e carBAMazepine (TEGretol) 100 MG chewable tablet 5 tabs a day 07/02/2020 Active amLODIPine (NORVASC) 10 MG tablet Comments: Filled Date: Mar 29 2020 7:03PM Patient Notes: TAKE 1 TABLET BY MOUTH EVERY DAY Duration: 90 03/29/2020 Active Iron, Ferrous Sulfate, 325 (65 Fe) MG tablet Take 1 tablet by mouth 5 (five) times a week: Thursday through Thursday 100 tablet 2 07/19/2020 Active QUEtiapine (SEROquel) 25 MG tablet TAKE 1/2 TAB DAILY NEEDED FOR ANXIETY, AND 1 TAB AT BEDTIME NEEDED FOR SLEEP 04/04/2021 Active furosemide (LASIX) 20 MG tablet TAKE 1 TABLET BY MOUTH EVERY DAY 30 tablet 1 09/03/2021 Active traMADol (ULTRAM) 50 MG tablet Take 25 mg by mouth 08/21/2023 Active Active Problems Problem Noted Date Diagnosed Date Stage 5 chronic kidney disease 04/23/2023 Chronic kidney disease, stage 4 (severe) 023 Renal osteodystrophy 06/12/2022 Bipolar disorder 11/28/2021 Edema of lower extremity 11/28/2021 Gastroesophageal reflux disease 11/28/2021 Lumbar spondylosis 11/28/2021 Migraine 11/28/2021 Sciatica 11/28/2021 Patient encounter status 11/28/2021 Seborrheic dermatitis of scalp 11/28/2021 Tick bite 11/28/2021 Anemia of chronic renal failure 07/19/2020 Benign hypertensive renal disease 07/19/2020 Essential hypertension 07/19/2020 Chronic kidney disease, stage 4 (severe) 021 Renal osteodystrophy 07/19/2020 Vaginal discharge problem 03/25/2013 Hypothyroidism 07/16/2012 Tremor 07/16/2012 Resolved Problems Problem Noted Date Diagnosed Date Resolved Date Chronic kidney disease stage 3 07/19/2020 11/14/2020 Hip pain 05/10/2018 11/14/2020 Encounters Date Type Department Care Team Description 03/13/2024 Office Communication [facility] [address] [place] [phone] David Goss MD from Last 3 Months Immunizations Name Administration Dates Next Due Influenza Split 12/30/2022,,12/03/2018,12/16/2017 ,12/17/2016 Influenza, Unspecified 12/02/2021,01/23/2021,,12/14/2014 Moderna SARS-COV-2 06/19/2021,,07/06/2020,06/13/2020 ,05/16/2020 Pneumococcal Conjugate 13-Valent 12/14/2014 Pneumococcal Polysaccharide 12/03/2018, 3 SARS-CoV-2, Unspecified 12/30/2022,04/08/2022, Tdap 07/16/2012 Family History Medical History Relation Comments Dementia Mother sister Heart disease Mother grandfather Hypertension Mother Stroke Mother Cancer Sibling brother - liver Relation Status Comments Father Mother Alive Sibling Social History Tobacco Use Types Packs/Day Years Used Date Smoking Tobacco: Never Alcohol Use Standard Drinks/Week Comments No 0 (1 standard drink = 0.6 oz pur e alcohol) Comments Unknown Sex and Gender Information Value Date Recorded Sex Assigned at Not on file Legal Sex Female 5:07 PM EST Gender Identity Not on file Sexual Orientation Not on file Last Filed Vital Signs Vital Sign Reading Time Taken Comments Blood Pressure 149/99 09/02/2023 4:14 PM EDT Pulse 74 09/02/2023 4:14 PM EDT Temperature - - Respiratory Rate - - Oxygen Saturation 97% 09/02/2023 4:14 PM EDT Inhaled Oxygen Concentration - - Weight 58.2 kg (128 lb 6.4 oz) 09/02/2023 4:14 P M EDT Height 157.5 cm (5' 2 ) 05/19/2019 12:00 PM EDT Body Mass Index 23.48 05/19/2019 12:00 PM EDT Plan of Treatment Health Maintenance Due Date Last Done Comments Influenza Vaccine (#1) 2023 , 12/02/2021, 01/23/2021, Additional history exists Pneumococcal Vaccine: 65+ Years Completed 12/03/2018, 12/14/2014, 05/04/2012 Hepatitis B Vaccine Aged Out No longe r eligible based on patient's age to complete this topic Procedures Procedure Name Priority Date/Time Associated Diagnosis Comments CBC Routine 03/10/2024 8:30 AM EST from Last 3 Months or Most Recently Relevant to Health Maintenance Results * (ABNORMAL) CBC (03/10/2024 8:30 AM EST) WBC 6.2 3.4 - 10.8 x10E3/uL [facility] RBC 3.64(L) 3.77 - 5.28 x10E6/uL [facility] Hemoglobin 10.9(L) 11.1 - 15.9 g/dL [facility] Hematocrit 34.1 34.0 - 46.6 % [facility] MCV 94 79 - 97 fL [facility] MCH 29.9 26.6 - 33.0 pg [facility] MCHC 32.0 31.5 - 35.7 g/dL [facility] RDW 14.0 11.7 - 15.4 % [facility] Platelets 338 150 - 450 x10E3/uL [facility] 03/10/2024 8:30 AM EST 03/10/2024 us David Goss MD LAB BLOOD ORDERABLES Final Re sult [facility] [address] [place] [phone] from Last 3 Months or Most Recently Relevant to Health Maintenance Insurance [facility] MEDICARE [facility] MEDICARE Care Teams Heeler Machine Relationship Specialty Start Date End Date Margarita Ribeiro MD [address] [place] [address] PCP - General Family Medicine 09/02/23
--- OUTSIDE RECORDS SUMMARY | 2024-06-10 14:20 | XMS_ITS | Encounter Summary ---
Author Organization [facility] Address [address] [facility] [address] [place] [address] Phone Care Team Providers Care Rn Clinical Quality Name Role Phone Margarita Ribeiro MD Primary Care Provider [phone] Reason for Visit * Reason Comments Med Refill Encounter Details Date Type Department Care Team ([facility] st Contact Info) Description 02/03/2021 Refill [facility] [address] [facility] [address] [place] [phone] David Goss MD [phone] [facility] [address] [place] [phone] Social History Tobacco Use Types Packs/Day Years [...] Telephone Encounter - David Goss MD - 02/04/2021 12:31 PM EST Needs f/u in 5-6 weeks with me [...] on filedocumented in this encounter Care Teams Rn Clinical Quality Relationship Specialty Start Date End Date Margarita Ribeiro MD [address] [facility] [place] PCP - General Family Medicine 09/02/23 documented as of this encounter
== END 2024-06-10 13:26 | disposition home or self-care (01) ==
LOC: HO.HOP 12:27
PROVIDERS: Visit Provider Psychiatry & Neurology Psychiatry
DX: F31.31 Bipolar disorder, current episode depressed, mild (principal); I10 Essential (primary) hypertension; N18.30 Chronic kidney disease, stage 3 unspecified
CPT/HCPCS: 90833; 99213

== ENCOUNTER → 2024-06-10 12:27 | Outpatient (BNVA) | payer MEDICARE, OTHER, SELFPAY | PROVIDERS: Visit Provider Psychiatry & Neurology Psychiatry | DX: I12.9 Hypertensive chronic kidney disease with stage 1 through stage 4 chronic kidney disease, or unspecified chronic kidney disease (principal); N18.30 Chronic kidney disease, stage 3 unspecified; F31.31 Bipolar disorder, current episode depressed, mild | CPT/HCPCS: 99212 ==